=== PATIENT | male | born 1975 | race Caucasian/White ===

== ENCOUNTER 2018-12-09 00:44 | Inpatient (IN) | payer BC ==
--- NOTE | 2018-12-09 01:20 | XR ---
EXAMINATION TYPE: XR chest 2V DATE OF EXAM: 12/09/2018 COMPARISON: NONE HISTORY: Palpitations TECHNIQUE: Frontal and lateral views of the chest are obtained. FINDINGS: Heart and mediastinum are normal. Lungs are clear. Diaphragm is normal. Bony thorax appear s normal. IMPRESSION: Normal chest
[2018-12-09 01:56] LABS: Basophils # (A) 0.1 k/uL (0-0.2); Basophils % (A) 1 %; Eosinophils # (A) 0.1 k/uL (0-0.7); Eosinophils % (A) 1 %; HCT 46.7 % (39.0-53.0); HGB 16.4 gm/dL (13.0-17.5); Hyperchromasia Slight; Lymphocytes # (A) 1.5 k/uL (1.0-4.8); Lymphocytes % (A) 15 %; MCH 30.5 pg (25.0-35.0); MCHC 35.2 g/dL (31.0-37.0); MCV 86.7 fL (80.0-100.0); Mean Platelet Volume 6.3; Monocytes # (A) 0.4 k/uL (0-1.0); Monocytes % (A) 4 %; Neutrophils # (A) 8.1 k/uL (1.3-7.7); Neutrophils % (A) 79 %; Platelet Count 336 k/uL (150-450); RBC 5.38 m/uL (4.30-5.90); RDW 14.7 % (11.5-15.5); WBC 10.3 k/uL (3.8-10.6)
[2018-12-09 02:12] LABS: ALT 25 U/L (21-72); AST 23 U/L (17-59); African American GFR (CKD) >90 (>60 ml/min/1.73 sqM); Alkaline Phosphatase 56 U/L (38-126); Anion Gap 14 mmol/L; Blood Urea Nitrogen 9 mg/dL (9-20); Calcium 10.4 mg/dL (8.4-10.2); Carbon Dioxide 28 mmol/L (22-30); Chloride 84 mmol/L (98-107); Glucose 152 mg/dL (74-99); Magnesium 1.8 mg/dL (1.6-2.3); Potassium 3.3 mmol/L (3.5-5.1); Sodium 126 mmol/L (137-145); Total Protein 8.2 g/dL (6.3-8.2)
[2018-12-09 02:30] LABS: Partial Thromboplastin Time 26.1 sec (22.0-30.0); Prothrombin Time 10.4 sec (9.0-12.0)
[2018-12-09] MEDS ORDERED: LORazepam 2 MG/ML INJ IV STA (03:12)
[2018-12-09 03:55] LABS: T4, Free (Free Thyroxine) 1.62 ng/dL (0.78-2.19)
[2018-12-09] MEDS ORDERED: POTASSIUM CHLORIDE ER 20 MEQ TAB.ER PO STA (04:03)
[2018-12-09] MEDS ORDERED: SODIUM CHLORIDE 0.9% 1,000 ML IV ONE (04:07)
[2018-12-09] MEDS ORDERED: SODIUM CHLORIDE 0.9% 1,000 ML IV SCH (04:15)
--- NOTE | 2018-12-09 04:20 | ED ---
Arrhythmia/Palpitations HPI - General Chief Complaint: Arrhythmia/Palpitations Stated Complaint: Palpitations Source: patient Mode of arrival: ambulatory Limitations: no limitations - History of Present Illness Initial Comments: The patient is a 43-year-old male with past medical history of hypertension who presents to the emergency room with reported palpitations. The patient states the symptoms started this evening while he was at home resting. States that he had mild associated shortness of breath. Denies chest pain. Admits that he felt nauseated with a slight presyncopal sensation. Because of the symptoms he did present to the emergency room for evaluation. Reports that he recently was restarted back on his high blood pressure medications. He has been taking them and access because he's been trying to "catch up" on his medications. These do include a diuretic. He has no history of previous cardiac disease. Denies ripping or tearing sensation to his back. No fevers or chills. Denies any cough or hemoptysis. No headache or visual changes. Denies any changes in his bowel or bladder habits. He denies any caffeine supplementation. There are no other alleviating, Perceptin or modifying factors - Related Data Home Medications Medication Instructions Recorded Confirmed Lisinopril-Hctz 20-25 mg 1 tab PO DAILY 12/09/18 12/09/18 [Zestoretic 20-25] Allergies Allergy/AdvReac Type Severity Reaction Status Date / Time codeine AdvReac Hallucinati Verified 12/09/18 08:51 ons Review of Systems ROS Statement: Those systems with pertinent positive or pertinent negative responses have been documented in the HPI. ROS Other: All systems not noted in ROS Statement are negative. 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 A 184. QRS 84. QTC 449. There are no acute ST segment elevations. Medical Decision Making - Medical Decision Making Upon arrival the patient is placed into room 15. He is hooked to continuous pulse ox and cardiac monitoring. Vitals are obtained and the patient is tachycardic. Peripheral IV is established. The patient does feel anxious I did provide him with 1 mg of Ativan. Laboratory studies were conducted. The patient was also sent for a chest x-ray. Upon return the results are discussed with the patient. D-dimer is less than 0.17, sodium 126, potassium 3.3, chloride 84, troponin is less than 0.012, TSH 5.6, and free T4 is 1.62. Urinalysis shows 1+ ketones. Urine osmolality is 411, random creatinine 93.9. Her demonstrates no acute findings. I discussed these results with the patient. He had been given a liter bolus of normal saline. I did recommend continued fluid hydration with reevaluation of his sodium in the morning. I also rec ommended hard analogy consult as the patient does remain persistently tachycardic near 115. The patient did agree to this. A call discuss case with Dr. Jaimes did accept admission for the patient. I will place cartilage on consult. The patient remained in stable condition and was transported to the floor - Lab Data Result diagrams: 12/09/18 01:33 12/09/18 01:33 Lab Results 12/09/18 12/09/18 12/09/18 Range/Units 01:33 01:33 01:33 WBC 10.3 (3.8-10.6) k/uL RBC 5.38 (4.30-5.90) m/uL Hgb 16.4 (13.0-17.5) gm/dL Hct 46.7 (39.0-53.0) % MCV 86.7 (80.0-100.0) fL MCH 30.5 (25.0-35.0) pg MCHC 35.2 (31.0-37.0) g/dL RDW 14.7 (11.5-15.5) % Plt Count 336 (150-450) k/uL Neutrophils % 79 % Lymphocytes % 15 % Monocytes % 4 % Eosinophils % 1 % Basophils % 1 % Neutrophils # 8.1 H (1.3-7.7) k/uL Lymphocytes # 1.5 (1.0-4.8) k/uL Monocytes # 0.4 (0-1.0) k/uL Eosinophils # 0.1 (0-0.7) k/uL Basophils # 0.1 (0-0.2) k/uL Hyperchromasia Slight PT 10.4 (9.0-12.0) sec INR 1.0 (<1.2) APTT 26.1 (22.0-30.0) sec D-Dimer (<0.60) mg/L FEU Sodium 126 L (137-145) mmol/L Potassium 3.3 L (3.5-5.1) mmol/L Chloride 84 L (98-107) mmol/L Carbon Dioxide 28 (22-30) mmol/L Anion Gap 14 mmol/L BUN 9 (9-20) mg/dL Creatinine 0.74 (0.66-1.25) mg/dL Est GFR (CKD-EPI)AfAm >90 (>60 ml/min/1.73 sqM) Est GFR (CKD-EPI)NonAf >90 (>60 ml/min/1.73 sqM) Glucose 152 H (74-99) mg/dL Osmolality (280-301) mosm/kg Calcium 10.4 H (8.4-10.2) mg/dL Magnesium 1.8 (1.6-2.3) mg/dL Total Bilirubin 1.0 (0.2-1.3) mg/dL AST 23 (17-59) U/L ALT 25 (21-72) U/L Alkaline Phosphatase 56 (38-126) U/L Troponin I (0.000-0.034) ng/mL Total Protein 8.2 (6.3-8.2) g/dL Albumin 5.0 (3.5-5.0) g/dL TSH (0.465-4.680) mIU/L Free T4 (0.78-2.19) ng/dL 12/09/18 12/09/18 12/09/18 Range/Units 01:33 01:33 01:33 WBC (3.8-10.6) k/uL RBC (4.30-5.90) m/uL Hgb (13.0-17.5) gm/dL Hct (39.0-53.0) % MCV (80.0-100.0) fL MCH (25.0-35.0) pg MCHC (31.0-37.0) g/dL RDW (11.5-15.5) % Plt Count (150-450) k/uL Neutrophils % % Lymphocytes % % Monocytes % % Eosinophils % % Basophils % % Neutrophils # (1.3-7.7) k/uL Lymphocytes # (1.0-4.8) k/uL Monocytes # (0-1.0) k/uL Eosinophils # (0-0.7) k/uL Basophils # (0-0.2) k/uL Hyperchromasia PT (9.0-12.0) sec INR (<1.2) APTT (22.0-30.0) sec D-Dimer <0.17 (<0.60) mg/L FEU Sodium (137-145) mmol/L Potassium (3.5-5.1) mmol/L Chloride (98-107) mmol/L Carbon Dioxide (22-30) mmol/L Anion Gap mmol/L BUN (9-20) mg/dL Creatinine (0.66-1.25) mg/dL Est GFR (CKD-EPI)AfAm (>60 ml/min/1.73 sqM) Est GFR (CKD-EPI)NonAf (>60 ml/min/1.73 sqM) Glucose (74-99) mg/dL Osmolality (280-301) mosm/kg Calcium (8.4-10.2) mg/dL Magnesium (1.6-2.3) mg/dL Total Bilirubin (0.2-1.3) mg/dL AST (17-59) U/L ALT (21-72) U/L Alkaline Phosphatase (38-126) U/L Troponin I <0.012 (0.000-0.034) ng/mL Total Protein (6.3-8.2) g/dL Albumin (3.5-5.0) g/dL TSH 5.610 H (0.465-4.680) mIU/L Free T4 1.62 (0.78-2.19) ng/dL 12/09/18 Range/Units 01:33 WBC (3.8-10.6) k/uL RBC (4.30-5.90) m/uL Hgb (13.0-17.5) gm/dL Hct (39.0-53.0) % MCV (80.0-100.0) fL MCH (25.0-35.0) pg MCHC (31.0-37.0) g/dL RDW (11.5-15.5) % Plt Count (150-450) k/uL Neutrophils % % Lymphocytes % % Monocytes % % Eosinophils % % Basophils % % Neutrophils # (1.3-7.7) k/uL Lymphocytes # (1.0-4.8) k/uL Monocytes # (0-1.0) k/uL Eosinophils # (0-0.7) k/uL Basophils # (0-0.2) k/uL Hyperchromasia PT (9.0-12.0) sec INR (<1.2) APTT (22.0-30.0) sec D-Dimer (<0.60) mg/L FEU Sodium (137-145) mmol/L Potassium (3.5-5.1) mmol/L Chloride (98-107) mmol/L Carbon Dioxide (22-30) mmol/L Anion Gap mmol/L BUN (9-20) mg/dL Creatinine (0.66-1.25) mg/dL Est GFR (CKD-EPI)AfAm (>60 ml/min/1.73 sqM) Est GFR (CKD-EPI)NonAf (>60 ml/min/1.73 sqM) Glucose (74-99) mg/dL Osmolality 258 L (280-301) mosm/kg Calcium (8.4-10.2) mg/dL Magnesium (1.6-2.3) mg/dL Total Bilirubin (0.2-1.3) mg/dL AST (17-59) U/L ALT (21-72) U/L Alkaline Phosphatase (38-126) U/L Troponin I (0.000-0.034) ng/mL Total Protein (6.3-8.2) g/dL Albumin (3.5-5.0) g/dL TSH (0.465-4.680) mIU/L Free T4 (0.78-2.19) ng/dL Disposition Clinical Impression: Sinus tachycardia, Hyponatremia Disposition: ADMITTED IP TO THIS [facility] Condition: Stable Is patient prescribed a controlled substance at d/c from ED?: No Decision to Admit Reason: Admit from EC Decision Date: 12/09/18 Decision Time: 04:19
[2018-12-09] MEDS ORDERED: NALOXONE 0.4 MG/ML 1 ML VIAL IV PRN (04:21)
[2018-12-09 05:48] VITALS: BMI 26.6
[2018-12-09 05:51] LABS: Appearance,Urine Clear (Clear); Bilirubin,Urine Negative (Negative); Blood,Urine Negative (Negative); Color,Urine Yellow; Glucose,Urine (UA) Negative (Negative); Ketones,Urine 1+ (Negative); Leukocyte Esterase,Urine Negative (Negative); Nitrite,Urine Negative (Negative); Protein,Urine Negative (Negative); Specific Gravity,Urine 1.012 (1.001-1.035); Urobilinogen,Urine <2.0 mg/dL (<2.0)
--- NOTE | 2018-12-09 10:32 | P.CRDCN ---
History of Present Illness Consult date: 12/09/18 Reason for Consult (text): Sinus tachycardia History of present illness: This is a 43-year-old male. 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 Patient has past history significant for hypertension. Patient also relates that he has increased anxiety/white coat hypertension. Patient ran out of his Zestoretic for about 5- 6 days. He saw his PCP on and his hydrochlorothiazide portion was increased and he started taking the new dose on afternoon. He also took 2 doses on Tuesday. He monitors his blood pressure at home and there was improvement but he continued to have elevated heart rate and came into [facility] emergency center for evaluation. He was found to be in a sinus tachycardia at 127 with a blood pressure of 171/97. Chest x-ray was norm al. At time of evaluation, patient does state that he is feeling better. He denies feeling any palpitations. Heart rate remains in the high 90s and blood pressure 152/86. The patient states that he does drink a lot of water. He has been urinating sufficiently. Laboratory studies: TSH 5.610, free T4 1 0.62. Sodium 126, potassium 3.3 and has been replaced, chloride 84, CO2 28, creatinine 0.74. Blood sugar 152. Osmolality 258. Review Of Systems: Constitutional: No fever, no chills, no night sweats. No weight change. No weakness, fatigue or lethargy. No daytime sleepiness. EENT: No headache. No blurred vision or double vision, no loss of vision. No loss of Hearing, no ringing in the ears, no dizziness. No nasal drainage or congestion. No epistaxis. No sore throat. Lungs: No shortness of breath, cough, no sputum production. No wheezing. Cardiovascular: No chest pain, no lower extremity edema. No palpitations. No paroxysmal nocturnal dyspnea. No orthopnea. No lightheadedness or dizziness. No syncopal episodes. Abdominal: No abdominal pain. No nausea, vomiting. No diarrhea. No constipation. No bloody or tarry stools.. No loss of appetite. Genitourinary: No dysuria, increased frequency, urgency. No urinary retention. Musculoskeletal: No myalgias. No muscle weakness, no gait dysfunction, no frequent falls. No back pain. No neck pain. Integumentary: No wounds, no lesions. No rash or pruritus. No unusual bruising. No change in hair or nails. Neurologic: No aphasia. No facial droop. No change in mentation. No head injury. No headache. No paralysis. No paresthesia. Psychiatric: No depression. No anxiety. No mood swings. Endocrine: No abnormal blood sugars. No weight change. No excessive sweating or thirst. No cold intolerance. No weight change. Gen: This is a 43-year-old male. Patient is resting in bed appears to be comfortable. HEENT: Head is atraumatic, normocephalic. Pupils equal, round. Sclerae is anicteric. NECK: Supple. No JVD. No lymphadenopathy. No thyromegaly. LUNGS: Clear to auscultation. No wheezes or rhonchi. No intercostal retractions. HEART: Regular rate and rhythm. No murmur. ABDOMEN: Soft. Bowel sounds are present. No masses. No tenderness. EXTREMITIES: No pedal edema. No calf tenderness. Dorsalis pedis +2 bilaterally. NEUROLOGICAL: Patient is awake, alert and oriented x3. Cranial nerves 2 through 12 are grossly intact. Assessment: Sinus tachycardia Hypertension Elevated blood sugar without history of diabetes Anxiety and white coat hypertension Plan: Discontinue Zestoretic completely Start Lopressor 50 mg twice daily Further recommendations to follow based upon clinical course. Thank you kindly for this consultation. Nurse practitioner note has been reviewed, I agree with documented findings and plan of care. Patient was seen and examined. Past Medical History Past Medical History: Hypertension Additional Past Medical History / Comment(s): tachycardia, History of Any Multi-Drug Resistant Organisms: None Reported Additional Past Surgical History / Comment(s): vasectomy, Past Anesthesia/Blood Transfusion Reactions: No Reported Reaction Past Psychological History: No Psychological Hx Reported Smoking Status: Never smoker Past Alcohol Use History: Occasional Past Drug Use History: None Reported Medications and Allergies Home Medications Medication Instructions Recorded Confirmed Type Lisinopril-Hctz 20-25 mg 1 tab PO DAILY 12/09/18 12/09/18 History [Zestoretic 20-25] Allergies Allergy/AdvReac Type Severity Reaction Status Date / Time codeine AdvReac Hallucinati Verified 12/09/18 08:51 ons Physical Exam Vitals: Vital Signs Temp Pulse Pulse Resp BP BP Pulse Ox 12/09/18 08:51 98.5 F 95 16 152/86 98 12/09/18 05:47 92 12/09/18 04:44 98.2 F 92 16 154/83 97 12/09/18 04:33 96 17 138/95 100 12/09/18 03:00 103 H 18 154/100 99 12/09/18 01:52 108 H 108 H 18 154/96 100 12/09/18 00:50 98.1 F 127 H 18 171/97 99 Intake and Output 12/08/18 12/09/18 12/09/18 22:59 06:59 14:59 Intake Total 100 Balance 100 Intake: Intake, IV Titration 100 Amount Sodium Chloride 0.9% 1, 100 000 ml @ 100 mls/hr IV . Q10H [facility] Rx#:[id number] Other: # Voids 0 Weight 79.6 kg Results 12/09/18 01:33 12/09/18 01:33 Cardiac Enzymes 12/09/18 12/09/18 Range/Units 01:33 01:33 AST 23 (17-59) U/L Troponin I <0.012 (0.000-0.034) ng/mL Coagulation 12/09/18 Range/Units 01:33 PT 10.4 (9.0-12.0) sec APTT 26.1 (22.0-30.0) sec CBC 12/09/18 Range/Units 01:33 WBC 10.3 (3.8-10.6) k/uL RBC 5.38 (4.30-5.90) m/uL Hgb 16.4 (13.0-17.5) gm/dL Hct 46.7 (39.0-53.0) % Plt Count 336 (150-450) k/uL Comprehensive Metabolic Panel 12/09/18 Range/Units 01:33 Sodium 126 L (137-145) mmol/L Potassium 3.3 L (3.5-5.1) mmol/L Chloride 84 L (98-107) mmol/L Carbon Dioxide 28 (22-30) mmol/L BUN 9 (9-20) mg/dL Creatinine 0.74 (0.66-1.25) mg/dL Glucose 152 H (74-99) mg/dL Calcium 10.4 H (8.4-10.2) mg/dL AST 23 (17-59) U/L ALT 25 (21-72) U/L Alkaline Phosphatase 56 (38-126) U/L Total Protein 8.2 (6.3-8.2) g/dL Albumin 5.0 (3.5-5.0) g/dL Current Medications Generic Name Dose Route Start Last Admin Trade Name Freq PRN Reason Stop Dose Admin Sodium Chloride 1,000 mls @ 100 mls/hr 12/09/18 04:15 12/09/18 06:03 Saline 0.9% IV Not Given .Q10H NATALIE Naloxone HCl 0.2 mg 12/09/18 04:21 Narcan IV Q2M PRN Opioid Reversal Intake and Output 12/08/18 12/09/18 12/09/18 22:59 06:59 14:59 Intake Total 100 Balance 100 Intake: Intake, IV Titration 100 Amount Sodium Chloride 0.9% 1, 100 000 ml @ 100 mls/hr IV . Q10H [facility] Rx#:[id number] Other: # Voids 0 Weight 79.6 kg 12/09/18 01:33 12/09/18 01:33
[2018-12-09 10:35] LABS: African American GFR (CKD) >90 (>60 ml/min/1.73 sqM); Anion Gap 12 mmol/L; Blood Urea Nitrogen 7 mg/dL (9-20); Calcium 9.6 mg/dL (8.4-10.2); Carbon Dioxide 26 mmol/L (22-30); Chloride 90 mmol/L (98-107); Glucose 128 mg/dL (74-99); Potassium 4.2 mmol/L (3.5-5.1); Sodium 128 mmol/L (137-145)
[2018-12-09] MEDS: METOPROLOL TARTRATE 50 MG TAB PO SCH ×2 (12:14→20:46)
--- NOTE | 2018-12-09 13:04 | P.HPIM ---
History of Present Illness H&P Date: 12/09/18 Chief Complaint: Palpitations and tachycardia Is a 43-year-old white male patient of our practice. He is in the office on for refill eyes hypertensive medication lisinopril/HCTZ. He been on a medication for a week. He complains of extreme anxiety in the office. He was found to have a heart rate in the 140s. He refused a ER transport. He went home. Indicates palpitations worsen that time his heart rate remained elevated. He went to the emergency room and was found to have hyponatremia sinus tachycardia. Sodium is 126 potassium 3.3. Initial labs. He was placed on IV fluids and normal saline 100 mL an hour and admitted for observation. He is feeling slightly better this morning with less palpitations. He denies any chest pains or pressures, significant shortness of breath. He does complain of some dizziness when he gets up. He also indicates his heart rate and palpitations increase with activity. Review of Systems All systems: negative Past Medical History Past Medical History: Hypertension Additional Past Medical History / Comment(s): tachycardia, History of Any Multi-Drug Resistant Organisms: None Reported Additional Past Surgical History / Comment(s): vasectomy, Past Anesthesia/Blood Transfusion Reactions: No Reported Reaction Past Psychological History: Anxiety Smoking Status: Never smoker Past Alcohol Use History: Occasional Past Drug Use History: None Reported Medications and Allergies Home Medications Medication Instructions Recorded Confirmed Type Lisinopril-Hctz 20-25 mg 1 tab PO DAILY 12/09/18 12/09/18 History [Zestoretic 20-25] Allergies Allergy/AdvReac Type Severity Reaction Status Date / Time codeine AdvReac Hallucinati Verified 12/09/18 08:51 ons Physical Exam Vitals: Vital Signs Temp Pulse Pulse Resp BP BP Pulse Ox 12/09/18 08:51 98.5 F 95 16 152/86 98 12/09/18 05:47 92 12/09/18 04:44 98.2 F 92 16 154/83 97 12/09/18 04:33 96 17 138/95 100 12/09/18 03:00 103 H 18 154/100 99 12/09/18 01:52 108 H 108 H 18 154/96 100 12/09/18 00:50 98.1 F 127 H 18 171/97 99 Intake and Output 0912/09/18 12/09/18 22:59 06:59 14:59 Intake Total 100 Balance 100 Intake: Intake, IV Titration 100 Amount Sodium Chloride 0.9% 1, 100 000 ml @ 100 mls/hr IV . Q10H [facility] Rx#:[id number] Other: # Voids 0 Weight 79.6 kg GENERAL: Somewhat anxious, well-nourished and in no acute distress. HEAD: Atraumatic, normocephalic. EYES: Pupils equal round and reactive to light, extraocular movements intact, sclera anicteric, conjunctiva are normal. ENT:nares patent, oropharynx clear without exudates. Moist mucous membranes. NECK: Normal range of motion, supple without lymphadenopathy or JVD, no thyromegaly LUNGS: Breath sounds clear to auscultation bilaterally and equal. No wheezes rales or rhonchi. HEART: Regular rate and rhythm without murmurs, rubs or gallops.S1S2 Normal heart rate is currently 92 ABDOMEN: Soft, nontender, normoactive bowel sounds. No guarding, no rebound. No masses appreciated. EXTREMITIES: Normal range of motion, no pitting or edema. No clubbing or cyanosis. NEUROLOGICAL: Cranial nerves II through XII grossly intact. Normal speech, normal gait. PSYCH: Normal mood, normal affect. SKIN: Warm, Dry, normal turgor, no rashes or lesions noted. Results CBC & Chem 7: 12/09/18 01:33 12/09/18 09:40 Labs: Abnormal Lab Results - Last 24 Hours (Table) 12/09/18 12/09/18 12/09/18 Range/Units 01:33 01:33 01:33 Neutrophils # 8.1 H (1.3-7.7) k/uL Sodium 126 L (137-145) mmol/L Potassium 3.3 L (3.5-5.1) mmol/L Chloride 84 L (98-107) mmol/L BUN (9-20) mg/dL Glucose 152 H (74-99) mg/dL Osmolality (280-301) mosm/kg Calcium 10.4 H (8.4-10.2) mg/dL TSH 5.610 H (0.465-4.680) mIU/L Urine Ketones (Negative) 12/09/18 12/09/18 12/09/18 Range/Units 01:33 05:11 09:40 Neutrophils # (1.3-7.7) k/uL Sodium 128 L (137-145) mmol/L Potassium (3.5-5.1) mmol/L Chloride 90 L (98-107) mmol/L BUN 7 L (9-20) mg/dL Glucose 128 H (74-99) mg/dL Osmolality 258 L (280-301) mosm/kg Calcium (8.4-10.2) mg/dL TSH (0.465-4.680) mIU/L Urine Ketones 1+ H (Negative) CT scan - abdomen: report reviewed Thrombosis Risk Factor Assmnt - DVT/VTE Prophylaxis DVT/VTE Prophylaxis: Low risk, early ambulation encouraged - Choose All That Apply Each Factor Represents 1 point: Age 41-60 years Other Risk Factors: No Thrombosis Risk Factor Assessment Total Risk Factor Score: 1 Thrombosis Risk Factor Assessment Level: Low Risk Assessment and Plan (1) Hypokalemia Current Visit: Yes Status: Acute Code(s): E87.6 - HYPOKALEMIA SNOMED Code(s): 67386113 (2) Medication adverse effect Current Visit: Yes Status: Acute Code(s): T50.905A - ADVERSE EFFECT OF UNSP DRUG/MEDS/BIOL SUBST, INIT SNOMED Code(s): 50736639 (3) Anxiety Current Visit: Yes Status: Acute Code(s): F41.9 - ANXIETY DISORDER, UNSPECIFIED SNOMED Code(s): 19775464 (4) Hyponatremia Current Visit: Yes Status: Acute Code(s): E87.1 - HYPO-OSMOLALITY AND HYPONATREMIA SNOMED Code(s): 07388039 (5) Sinus tachycardia Current Visit: Yes Status: Acute Code(s): R00.0 - TACHYCARDIA, UNSPECIFIED SNOMED Code(s): 86300542 (6) Elevated glucose Current Visit: Yes Status: Acute Code(s): R73.09 - OTHER ABNORMAL GLUCOSE SNOMED Code(s): 10518379 Plan: Cardiology is been consult and seen him. They discontinued his lisinopril/HCT and place him on Lopressor to help with the palpitations. I'll place him on a 1500 mL fluid restriction. Hold his IV fluids at this time. Discourage him from drinking so much free water is indicates she is been consuming a great deal. An A1c will be checked. Repeat labs in a.m. Monitor his TSH was slightly abnormal. He'll be reevaluated next 24 hours.
--- NOTE | 2018-12-09 16:01 | ECHOF ---
Referral Reason:palpitations MEASUREMENTS -------- HEIGHT: 172.7 cm WEIGHT: 77.1 kg BP: 154/83 RVIDd: 3.1 cm (< 3.3) IVSd: 1.0 cm (0.6 - 1.1) LVIDd: 3.6 cm (3.9 - 5.3) LVPWd: 1.1 cm (0.6 - 1.1) IVSs: 1.4 cm LVIDs: 2.7 cm LVPWs: 1.4 cm LA Diam: 2.7 cm (2.7 - 3.8) LAESV Index (A-L): 18.98 ml/m Ao Diam: 3.0 cm (2.0 - 3.7) AV Cusp: 2.5 cm (1.5 - 2.6) MV EXCURSION: 13.536 mm (> 18.000) MV EF SLOPE: 82 mm/s (70 - 150) EPSS: 0.7 cm MV E Gian: 0.84 m/s MV DecT: 173 ms MV A Gian: 0.92 m/s MV E/A Ratio: 0.91 RAP: 5.00 mmHg RVSP: 20.86 mmHg TAPSE: 19.91 mm FINDINGS -------- Sinus rhythm. This was a technically adequate study. The left ventricular size is normal. Left ventricular wall thickness is normal. Overall left vent ricular systolic function is normal with, an EF between 60 - 65 %. The diastolic filling pattern is normal for the age of the patient 7.52. The right ventricle is normal in size. The left atrial size is normal. The right atrium is normal in size. Interatrial and interventricular septum intact. The aortic valve is trileaflet and appears structurally normal. The mitral valve is normal. Mild tricuspid regurgitation present. Right ventricular systolic pressure is normal at < 35 mmHg. Trace/mild (physiologic) pulmonic regurgitation. The aortic root size is normal. Normal inferior vena cava with normal inspiratory collapse consistent with estimated right atrial pre ssure of 5 mmHg. There is no pericardial effusion. CONCLUSIONS -------- 1. Sinus rhythm. 2. This was a technically adequate study. 3. The left ventricular size is normal. 4. Left ventricular wall thickness is normal. 5. Overall left ventricular systolic function is normal with, an EF between 60 - 65 %. 6. The diastolic filling pattern is normal for the age of the patient 7.52 7. The right ventricle is normal in size. 8. The left atrial size is normal. 9. The right atrium is normal in size. 10. Interatrial and interventricular septum intact. 11. The aortic valve is trileaflet and appears structurally normal. 12. The mitral valve is normal. 13. Mild tricuspid regurgitation present. 14. Right ventricular systolic pressure is normal at < 35 mmHg. 15. Trace/mild (physiologic) pulmonic regurgitation. 16. The aortic root size is normal. 17. Normal inferior vena cava with normal inspiratory collapse consistent with estimated right atrial pressure of 5 mmHg. 18. There is no pericardial effusion. FAMILY MEDICINE PHYSICIAN ASSISTANT: Annemarie Nelson RDCS
[2018-12-09 17:20] LABS: Glucose,Whole Blood 113 mg/dL (75-99)
[2018-12-09 17:58] LABS: Hemoglobin A1C 5.3 % (4.0-6.0)
[2018-12-09 20:36] LABS: Glucose,Whole Blood 116 mg/dL (75-99)
[2018-12-10] MEDS: SODIUM CHLORIDE 0.9% 1,000 ML IV SCH ×2 (00:03→02:32)
[2018-12-10 06:19] LABS: Glucose,Whole Blood 98 mg/dL (75-99)
[2018-12-10 06:20] LABS: Basophils # (A) 0.1 k/uL (0-0.2); Basophils % (A) 1 %; Eosinophils # (A) 0.1 k/uL (0-0.7); Eosinophils % (A) 1 %; HCT 43.4 % (39.0-53.0); Lymphocytes # (A) 1.5 k/uL (1.0-4.8); Lymphocytes % (A) 23 %; MCH 30.5 pg (25.0-35.0); MCHC 34.6 g/dL (31.0-37.0); MCV 88.2 fL (80.0-100.0); Mean Platelet Volume 6.2; Monocytes # (A) 0.5 k/uL (0-1.0); Monocytes % (A) 7 %; Neutrophils % (A) 64 %; Platelet Count 315 k/uL (150-450); RBC 4.91 m/uL (4.30-5.90); RDW 12.2 % (11.5-15.5); WBC 6.3 k/uL (3.8-10.6)
[2018-12-10 06:34] LABS: African American GFR (CKD) >90 (>60 ml/min/1.73 sqM); Anion Gap 5 mmol/L; Blood Urea Nitrogen 11 mg/dL (9-20); Calcium 9.6 mg/dL (8.4-10.2); Carbon Dioxide 30 mmol/L (22-30); Chloride 101 mmol/L (98-107); Glucose 97 mg/dL (74-99); Magnesium 2.3 mg/dL (1.6-2.3); Potassium 4.8 mmol/L (3.5-5.1); Sodium 136 mmol/L (137-145)
[2018-12-10] MEDS: METOPROLOL TARTRATE 50 MG TAB PO SCH ×2 (07:56→16:04)
[2018-12-10 08:42] VITALS: RESP 18
[2018-12-10 12:26] LABS: Glucose,Whole Blood 111 mg/dL (75-99)
--- NOTE | 2018-12-10 13:42 | P.PN ---
Subjective Progress Note Date: 12/10/18 This is a 43-year-old male. Patient does not have any previous cardiac history and does not see a collateral clerk. Patient has past history significant for hypertension. Patient also relates that he has increased anxiety/white coat hypertension. Patient ran out of his Zestoretic for about 5- 6 days. He saw his PCP on and his hydrochlorothiazide portion was increased and he started taking the new dose on afternoon. He also took 2 doses on Tuesday. He monitors his blood pressure at home and there was improvement but he continued to have elevated heart rate and came into [facility] for evaluation. He was found to be in a sinus tachycardia at 127 with a blood pressure of 171/97. Chest x-ray was normal. At time of evaluation, patient does state that he is feeling better. He denies feeling any palpitations. Heart rate remains in the high 90s and blood pressure 152/86. The patient states that he does drink a lot of water. He has been urinating sufficiently. Laboratory studies: TSH 5.610, free T4 1 0.62. Sodium 126, potassium 3.3 and has been replaced, chloride 84, CO2 28, creatinine 0.74. Blood sugar 152. Osmolality 258. 12/10: Patient states that he is feeling much better today. He denies any palpitations, chest pain or shortness of breath. He has been ambulatory without difficulty. He has been tolerating Lopressor 50 mg twice daily which will be recommended for home. Sodium 136, potassium 4.8, chloride 101, CO2 30, creatinine 0.85. Gen: This is a 43-year-old male. Patient is sitting up in bed appears to be comfortable. HEENT: Head is atraumatic, normocephalic. Pupils equal, round. Sclerae is an icteric. NECK: Supple. No JVD. No lymphadenopathy. No thyromegaly. LUNGS: Clear to auscultation. No wheezes or rhonchi. No intercostal retractions. HEART: Regular rate and rhythm. No murmur. ABDOMEN: Soft. Bowel sounds are present. No masses. No tenderness. EXTREMITIES: No pedal edema. No calf tenderness. Dorsalis pedis +2 bilaterally. NEUROLOGICAL: Patient is awake, alert and oriented x3. Cranial nerves 2 through 12 are grossly intact. Assessment: Sinus tachycardia Hypertension Elevated blood sugar without history of diabetes Anxiety and white coat hypertension Plan: Discontinue Zestoretic completely Continue Lopressor 50 mg twice daily Further recommendations to follow based upon clinical course. Thank you kindly for this consultation. Nurse practitioner note has been reviewed, I agree with documented findings and plan of care. Patient was seen and examined. Objective - Vital Signs Vital signs: Vital Signs Temp 97.7 F 12/10/18 08:00 Pulse 94 12/10/18 08:00 Resp 18 12/10/18 08:00 BP 146/85 12/10/18 08:00 Pulse Ox 99 12/10/18 08:00 Intake & Output 12/09/18 12/10/18 12/10/18 18:59 06:59 18:59 Intake Total 1300 720 118 Balance 1300 720 118 Weight 80.2 kg Intake: Intake, IV Titration 700 600 Amount Sodium Chloride 0.9% 1, 700 000 ml @ 100 mls/hr IV . Q10H NATALIE Rx#:[id number] Sodium Chloride 0.9% 1, 600 000 ml @ 75 mls/hr IV . [id number] NATALIE Rx#:[id number] Oral 600 120 118 Other: # Voids 4 1 - Labs CBC & Chem 7: 12/10/18 05:36 12/10/18 05:36 Labs: Abnormal Lab Results - Last 24 Hours (Table) 12/09/18 12/09/18 12/10/18 Range/Units 17:18 20:35 05:36 Sodium 136 L (137-145) mmol/L POC Glucose (mg/dL) 113 H 116 H (75-99) mg/dL 12/10/18 Range/Units 12:07 Sodium (137-145) mmol/L POC Glucose (mg/dL) 111 H (75-99) mg/dL
--- NOTE | 2018-12-10 16:03 | P.DS ---
Providers Date of admission: 12/09/18 04:21 Expected date of discharge: 12/10/18 Attending physician: Jean Pierre Jaimes Consults: 12/09/18 04:21 Consult Physician Urgent Consulting Provider: [facility] Consult Reason/Comments: palpitations Do you want consulting provider notified?: Yes Primary care physician: Drew Avila - Paula Diagnosis(es) (1) Hypokalemia Current Visit: Yes Status: Acute (2) Medication adverse effect Current Visit: Yes Status: Acute (3) Anxiety Current Visit: Yes Status: Acute (4) Hyponatremia Current Visit: Yes Status: Acute (5) Sinus tachycardia Current Visit: Yes Status: Acute (6) Elevated glucose Current Visit: Yes Status: Acute Hospital Course: The patient Is a 43-year-old white male patient of our practice. He is in the office on for refill eyes hypertensive medication lisinopril/HCTZ. He been on a medication for a week. He complains of extreme anxiety in the office. He was found to have a heart rate in the 140s. He refused a ER transport. He went home. Indicates palpitations worsen that time his heart rate remained elevated. He went to the emergency room and was found to have hyponatremia sinus tachycardia. Sodium is 126 potassium 3.3. Initial labs. He was placed on IV fluids and normal saline 100 mL an hour and admitted for observation. He is feeling slightly better this morning with less palpitations. He denies any chest pains or pressures, significant shortness of breath. He does complain of some dizziness when he gets up. He also indicates his heart rate and palpitations increase with activity. 12/10/2018: Patient is doing much better. He is sinus rhythm, heart rate around 70s. Sodium is now 136 up from 128. Magnesium stayed stable. Hemoglobin A1c was 5.3 indicating no diabetes. Most likely this is a combination of polydipsia and medication side effect causing hyponatremia. He stated will be discharged home. We'll plan on laboratory studies in 1 day for lichenoid abnormalities and in 6 weeks for repeat thyroid functions. Patient Condition at Discharge: Stable Plan - Discharge Summary Discharge Rx Participant: No New Discharge Prescriptions: New Metoprolol Tartrate [Lopressor] 50 mg PO BID tab Discontinued Lisinopril-Hctz 20-25 mg [Zestoretic 20-25] 1 tab PO DAILY Discharge Medication List Metoprolol Tartrate [Lopressor] 50 mg PO BID tab 12/10/18 [Rx] Follow up Appointment(s)/Referral(s): Drew Avila Jr, [Primary Care Provider] - 1-2 days (Fide Velázquez NP. Please follow up with your primary physician within one week of discharge. ) Justin Segura MD [STAFF PHYSICIAN] - 1 Week Ambulatory/Diagnostic Orders: Basic Metabolic Panel [LAB.AMB] Time Frame: 1 Day, Location: None Selected Magnesium [LAB.AMB] Location: None Selected Patient Instructions/Handouts: Hyponatremia (DC), Tachycardia (ED) Activity/Diet/Wound Care/Special Instructions: Metoprolol dose for home. Discharge Disposition: HOME SELF-CARE
[2018-12-10 16:17] VITALS: BP 144/94; PULSE 85; TEMP 97.8
== END 2018-12-10 16:15 | disposition home or self-care (01) | DRG 641 ==
LOC: EC 00:44 → 3SCARD 04:21
PROVIDERS: ADMIT Family Medicine; ATTEND Family Medicine
DX: E87.1 Hypo-osmolality and hyponatremia (principal); E87.6 Hypokalemia; T46.4X5A Adverse effect of angiotensin-converting-enzyme inhibitors, initial encounter; R00.0 Tachycardia, unspecified; R63.1 Polydipsia; I10 Essential (primary) hypertension; R73.9 Hyperglycemia, unspecified; F41.9 Anxiety disorder, unspecified; Z79.899 Other long term (current) drug therapy; Z88.5 Allergy status to narcotic agent; Y92.009 Unspecified place in unspecified non-institutional (private) residence as the place of occurrence of the external cause
CPT/HCPCS: 36415; 71046; 80048; 80053; 81003; 82570; 83036; 83735; 83930; 83935; 84300; 84439; 84443; 84484; 85025; 85379; 85610; 85730; 93005; 93306; 96361; 96374; 99285